=== PATIENT | male | born 1940 | race Caucasian/White ===

== ENCOUNTER 2018-01-16 07:24 | Day surgery (SDC) | payer OTHER, MEDICARE ==
[2018-01-15 15:40] LABS: Absolute Lymphocytes (CBC) 1.5 K/uL (0.7-4.9); Absolute Monocytes 0.6 K/uL (0.1-1.3); Absolute Neutrophil 3.5 K/uL (1.8-8.0); Basophils % 1.3 % (0-1.3); Eosinophils % 3.8 % (0-4.4); Hematocrit 40.2 % (39.6-49.0); Lymphocytes % 25.1 % (15.3-44.8); MCH 33.7 pg (27.0-35.0); MCV 95.2 fL (80-100); MPV 7.9 fL (7.6-11.3); Monocytes % 9.9 % (3.3-12.3); RBC Red Blood Cell Count 4.23 M/uL (4.33-5.43)
[2018-01-15 16:01] LABS: Potassium 4.1 mmol/L (3.5-5.1)
[2018-01-16] MEDS ORDERED: Ringers Lactate 1,000 ML IV ONE (08:42)
[2018-01-16] MEDS ORDERED: CEFAZOLIN/SWI 1gm 1 GM/10 ML SYR ONE (08:42)
[2018-01-16] MEDS ORDERED: PROPOFOL 200 MG/20 ML VIAL IV ONE ×2 (09:08→09:23)
[2018-01-16] MEDS ORDERED: LIDOCAINE 2% MPF 5 ML VIAL ONE (09:09)
--- NOTE | 2018-01-16 10:16 | P.BOP ---
Preoperative diagnosis: tender scalp mass Postoperative diagnosis: same Primary procedure: Excisioanal biopsy of tender scalp mass 2x2cm Estimated blood loss: <10cc Specimen: mass Findings: mass Anesthesia: General Complications: None Transferred to: Recovery Room Condition: Good
[2018-01-16] MEDS ORDERED: CODEINE 30MG/APAP 300MG TAB ONE (10:44)
--- NOTE | 2018-01-16 21:21 | DS ---
Date of Discharge: 01/16/2018 Diagnosis: Tender scalp mass. Procedure: Excisional biopsy of tender scalp mass, 2 x 2 cm. Disposition: Home. Activity: As tolerated. No heavy lifting. Followup: Follow up in my office in 1 week. Call for an appointment at [phone]. Keep area dry for 48 hours, then may shower. ACE Voice ID: [id number] Report ID: [id number]
--- NOTE | 2018-01-16 22:00 | OP ---
Date of Procedure: 01/16/2018 Surgeon: Garcia Jones MD Preoperative Diagnosis: Tender scalp mass. Postoperative Diagnosis: Tender scalp mass. Procedure: Excisional biopsy of tender enlarging scalp mass, 2 x 2 cm. Anesthesia: General plus local. Indications: This is a case of a 78-year-old patient who comes to us with a mass in the scalp, incre asing pain and discomfort, changing in color. The benefits, alternatives, and risks of excision were fully explained to the patient, which included, but are not limited to infection, bleeding, damage t o adjacent structures, anesthesia complications, recurrence, [place], and even . He also understands this may not relieve any symptoms. He may need more than one surgical intervention. The [facility] was marked by me and the patient in the holding room. Description Of Procedure: The patient was brought to the operating room and placed in the supine pos ition. Anesthesia was achieved without complication. Scalp area was prepped and draped in sterile f ashion. Local anesthetic was applied followed by sharp incision of the skin in a wedge fashion. Inc ision was carried down to the scalp, full thickness, all the way down to the bone, although does not involve the bone. The mass was excised. The area was irrigated. Hemostasis was obtained, and then this was closed with 2-0 nylon interrupted multiple times until closed. The patient tolerated the procedure well. No bleeding. The patient was sent to recovery in stable condition. LALITA/MARIA DEL CARMEN Voice ID: [id number] Report ID: [id number]
== END 2018-01-16 11:39 | disposition home or self-care (01) ==
LOC: OR 07:24
PROVIDERS: ATTEND Surgery
PROC: 0JB00ZZ Excision of Scalp Subcutaneous Tissue and Fascia, Open Approach (ICD-10-PCS; principal; 2018-01-16 08:45)
DX: L72.11 Pilar cyst (principal); I10 Essential (primary) hypertension; G47.30 Sleep apnea, unspecified; Z80.3 Family history of malignant neoplasm of breast; Z80.1 Family history of malignant neoplasm of trachea, bronchus and lung
CPT/HCPCS: 11422; 36415; 80048; 85025; 88304; J0690; J2704 ×2; 88305

== ENCOUNTER 2018-06-16 19:25 | Emergency (ER) | payer OTHER, MEDICARE ==
[2018-06-16] MEDS ORDERED: HYDROCODONE/APAP 7.5/325 MG TAB ONE (20:15)
[2018-06-16] MEDS ORDERED: IBUPROFEN 400 MG TAB ONE (20:15)
[2018-06-16] MEDS ORDERED: BUPIVACAINE 0.5% PF 10 ML VIAL ONE (20:16)
[2018-06-16] MEDS ORDERED: LIDOCAINE 1% MPF 5 ML VIAL ONE (20:16)
[2018-06-16] MEDS ORDERED: TETANUS & DIPHTHERIA TOX,ADULT 0.5 ML VIAL ONE (20:18)
--- NOTE | 2018-06-16 21:17 | RAD REPORT ---
EXAM DESCRIPTION: RAD - Hand Left 3 View - 06/16/2018 8:40 pm CLINICAL HISTORY: Trip and fall, hand pain, laceration COMPARISON: None. FINDINGS: No fracture, dislocation or periosteal reaction noted. IP joint degenerative changes are p resent most notable at the third PIP joint. No foreign body confirmed. A few film artifacts are prese nt. IMPRESSION: No fracture or acute bone finding. No foreign body seen.
--- NOTE | 2018-06-16 22:26 | EDPHYS ---
Physician Documentation [facility] Name: Jonathan Arreguin Age: 78 yrs Sex: Male : 1940 Arrival Date: 06/16/2018 Time: 19:27 Bed 30 Private MD: Omid Arreguin E ED Physician Zain Alfaro HPI: 06/16 20:05 This 78 yrs old Male presents to ER via Ambulatory with complaints of cp Laceration To Hand. 20:05 The patient or guardian reports injury, a laceration, irregular, pain. The complaints cp affect the sutton side left fifth metacarpal head. Context: resulted from fall while walking. Onset: The symptoms/episode began/occurred just prior to arrival. Associated signs and symptoms: Pertinent negatives: cyanosis distally, decreased sensation distally. Historical: - Allergies: 19:50 No Known Allergies; lp1 - Immunization history:: Adult Immunizations up to date, Last tetanus immunization: unknown. - Social history:: Smoking status: Patient/guardian denies using tobacco. - Ebola Screening: : No symptoms or risks identified at this time. ROS: 20:10 Constitutional: Negative for body aches, chills, fever, poor PO intake. cp 20:10 Eyes: Negative for injury, pain, redness, and discharge. cp 20:10 ENT: Negative for ear pain, sore throat, difficulty swallowing, difficulty handling cp secretions. 20:10 Cardiovascular: Negative for chest pain. 20:10 Respiratory: Negative for cough. 20:10 Abdomen/GI: Negative for abdominal pain. 20:10 Skin: Positive for laceration(s), of the left hand. 20:10 Neuro: Negative for dizziness, loss of consciousness, numbness, weakness. 20:10 All other systems are negative. Exam: 20:30 Constitutional: The patient appears in no acute distress, alert, awake, well developed, cp well nourished. 20:30 Head/Face: Normocephalic, atraumatic. cp 20:30 Eyes: Periorbital structures: appear normal, Conjunctiva: normal, Lids and lashes: appear normal, bilaterally. 20:30 ENT: External ear(s): are unremarkable, Nose: is normal, Mouth: is normal. 20:30 Chest/axilla: Inspection: normal. 20:30 Cardiovascular: Rate: normal. 20:30 Respiratory: the patient does not display signs of respiratory distress, Respirations: normal. 20:30 Musculoskeletal/extremity: ROM: full active range of motion, in the left fifth finger, Perfusion: the extremity is normally perfused throughout, Sensation intact. Tendon exam: specific tendon testing normal through active and passive range of motion 20:30 Skin: injury, laceration(s), the wound is approximately 5 cm(s), of the sutton side head of fifth metacarpal, that can be described as irregular, with moderate bleeding. Vital Signs: 19:50 BP 151 / 68; Pulse 62; Resp 18; Temp 99(TE); Pulse Ox 97% on R/A; Weight 104.33 kg; lp1 Height 6 ft. 0 in. (182.88 cm); Pain 10/10; 22:41 BP 138 / 71 RA Supine; Pulse 66; Resp 16 S; Pulse Ox 98% on R/A; rv 19:50 Body Mass Index 31.19 (104.33 kg, 182.88 cm) lp1 Laceration: 22:21 Wound Repair of 5cm ( 2.0in ) subcutaneous laceration to sutton side head of fifth cp metacarpal. Irregularly shaped.. Distal neuro/vascular/tendon intact. Anesthesia: Wound infiltrated with 5 mls of Lido/Marcaine. Wound prep: Moderate cleansing by me, Wound irrigation by me. Skin closed with 11 4-0 Prolene using simple sutures and sterile technique. Dressed with Bacitracin, 4x4's, volar splint. Patient tolerated well. MDM: 19:49 Patient medically screened. cp 22:24 Data reviewed: vital signs, nurses notes, radiologic studies, plain films. Test cp interpretation: by ED physician or midlevel provider: plain radiologic studies. Counseling: I had a detailed discussion with the patient and/or guardian regarding: the historical points, exam findings, and any diagnostic results supporting the discharge/admit diagnosis, radiology results, to return to the emergency department if symptoms worsen or persist or if there are any questions or concerns that arise at home. Response to treatment: the patient's symptoms have markedly improved after treatment, and as a result, I will discharge patient. 06/16 19:59 Order name: XRAY Hand LEFT 3 View; Complete Time: 21:21 cp 06/16 20:46 Order name: Wound Care: please clean and irrigate wound; Complete Time: 20:50 cp 06/16 22:10 Order name: Wound dressing; Complete Time: 22:32 cp 06/16 22:10 Order name: Splint - Volar Wrist Splint: left; Complete Time: 22:32 cp Administered Medications: 20:10 Drug: Hydrocodone-Acetaminophen (7.5 mg-325 mg) 1 tabs Route: PO; rv 22:39 Follow up: Response: Pain is decreased rv 20:10 Drug: Ibuprofen 800 mg Route: PO; rv 22:39 Follow up: Response: Pain is decreased rv 22:15 Drug: Tetanus-Diphtheria Toxoid Adult 0.5 ml {Qm Consultant: [employer]. Exp: rv 04/18/2020. Lot #: [id number]. } Route: IM; Site: right deltoid; 22:39 Follow up: Response: No adverse reaction rv 22:30 Drug: KeFLEX 500 mg Route: PO; rv 22:39 Follow up: Response: Medication administered at discharge. rv Disposition: 06/17 01:40 Co-signature as Attending Physician, Zain Alfaro MD. rn Disposition: 06/16/18 22:26 Discharged to Home. Impression: Laceration without foreign body of left hand. - Condition is Stable. - Discharge Instructions: Laceration Care, Adult. - Prescriptions for Keflex 500 mg Oral Capsule - take 1 capsule by ORAL route every 8 hours for 10 days; 30 capsule. Tramadol 50 mg Oral Tablet - take 1 tablet by ORAL route every 8 hours as needed; 12 tablet. - Medication Reconciliation Form, Thank You Letter, Antibiotic Education, Prescription Opioid Use form. - Follow up: Private Physician; When: 10 - 14 days; Reason: Staple/Suture removal. - Problem is new. - Symptoms have improved. Signatures: Dispatcher [employer] EDMS Zain Alfaro MD MD rn Pena, Laura, RN RN lp1 Jose Desai PA PA cp Vicente, Ronaldo, RN RN rv Corrections: (The following items were deleted from the chart) 06/16 22:41 22:26 06/16/2018 22:26 Discharged to Home. Impression: Laceration without foreign body rv of left hand. Condition is Stable. Forms are Medication Reconciliation Form, Thank You Letter, Antibiotic Education, Prescription Opioid Use. Follow up: Private Physician; When: 10 - 14 days; Reason: Staple/Suture removal. Problem is new. Symptoms have improved. cp
--- NOTE | 2018-06-16 22:26 | ER ---
Nurse's Notes [facility] Name: Jonathan Arreguin Age: 78 yrs Sex: Male : 1940 Arrival Date: 06/16/2018 Time: 19:27 Bed 30 Private MD: Omid Arreguin E Diagnosis: Laceration without foreign body of left hand Presentation: 06/16 19:49 Presenting complaint: Patient states: "I tripped and fell on some gravel"; Laceration lp1 to palm of left hand; Denies any other injuries. Transition of care: patient was not received from another setting of care. Onset of symptoms was June 16, 2018. Risk Assessment: Do you want to hurt yourself or someone else? Patient reports no desire to harm self or others. Initial Sepsis Screen: Does the patient meet any 2 criteria? No. Patient's initial sepsis screen is negative. Does the patient have a suspected source of infection? No. Patient's initial sepsis screen is negative. Care prior to arrival: None. 19:49 Method Of Arrival: Ambulatory lp1 19:49 Acuity: DECLAN 4 lp1 Historical: - Allergies: 19:50 No Known Allergies; lp1 - Immunization history:: Adult Immunizations up to date, Last tetanus immunization: unknown. - Social history:: Smoking status: Patient/guardian denies using tobacco. - Ebola Screening: : No symptoms or risks identified at this time. Screenin:50 Abuse screen: Denies threats or abuse. Denies injuries from another. Nutritional lp1 screening: No deficits noted. Tuberculosis screening: No symptoms or risk factors identified. 20:30 Fall Risk Fall in past 12 months (25 points). Secondary diagnosis (15 points) impaired rv mobility, No IV (0 pts). Ambulatory Aid- None/Bed Rest/Nurse Assist (0 pts). Gait- Normal/Bed Rest/Wheelchair (0 pts) Mental Status- Oriented to own ability (0 pts). Total Ashby Fall Scale indicates No Risk (0-24 pts). Assessment: 20:28 General: Appears in no apparent distress. comfortable, Behavior is calm, cooperative. rv Pain: Complains of pain in left hand. Neuro: Level of Consciousness is awake, alert, obeys commands, Oriented to person, place, time, situation. Cardiovascular: Capillary refill < 3 seconds. Respiratory: Airway is patent. GI: No signs and/or symptoms were reported involving the gastrointestinal system. : No signs and/or symptoms were reported regarding the genitourinary system. EENT: No signs and/or symptoms were reported regarding the EENT system. Derm: Wound noted inner aspect of left palm Wound is laceration. Musculoskeletal: Swelling present in inner aspect of left palm. Injury Description: Laceration sustained to inner aspect of left palm is contaminated, 0.5 to 2.5 cm long, not bleeding, was sustained 30-60 minutes ago. a small amount of bleeding noted at this time. Vital Signs: 19:50 BP 151 / 68; Pulse 62; Resp 18; Temp 99(TE); Pulse Ox 97% on R/A; Weight 104.33 kg; lp1 Height 6 ft. 0 in. (182.88 cm); Pain 10/10; 22:41 BP 138 / 71 RA Supine; Pulse 66; Resp 16 S; Pulse Ox 98% on R/A; rv 19:50 Body Mass Index 31.19 (104.33 kg, 182.88 cm) lp1 ED Course: 19:27 Patient arrived in ED. do 19:27 Omid Arreguin MD is Private Physician. do 19:49 Jose Desai [facility]. cp 19:49 Zain Alfaro MD is Attending Physician. cp 19:49 Triage completed. lp1 19:50 Arm band placed on right wrist. lp1 19:50 Patient has correct armband on for positive identification. lp1 19:59 Sesar Llamas, LUAN is Primary Nurse. rv 20:28 XRAY Hand LEFT 3 View Sent. rv 20:30 Wound care: to laceration located on inner aspect of left palm was cleaned with rv Hibiclens, irrigated with normal saline, dressed with 4X4s, Patient tolerated well. 20:40 XRAY Hand LEFT 3 View In Process Unspecified. EDMS 22:40 Assist provider with laceration repair on inner aspect of left palm that was 2.5 cm. or rv less using sutures. Set up tray. Performed by Jose HOLLAND Dressed with 4X4s, Patient tolerated well. Patient did not have IV access during this emergency room visit. Administered Medications: 20:10 Drug: Hydrocodone-Acetaminophen (7.5 mg-325 mg) 1 tabs Route: PO; rv 22:39 Follow up: Response: Pain is decreased rv 20:10 Drug: Ibuprofen 800 mg Route: PO; rv 22:39 Follow up: Response: Pain is decreased rv 22:15 Drug: Tetanus-Diphtheria Toxoid Adult 0.5 ml {Vp Marketing: [employer]. Exp: rv 04/18/2020. Lot #: [id number]. } Route: IM; Site: right deltoid; 22:39 Follow up: Response: No adverse reaction rv 22:30 Drug: KeFLEX 500 mg Route: PO; rv 22:39 Follow up: Response: Medication administered at discharge. rv Outcome: 22:26 Discharge ordered by MD. cp 22:40 Discharged to home ambulatory. rv 22:40 Condition: good 22:40 Discharge instructions given to patient, Instructed on discharge instructions, follow up and referral plans. medication usage, wound care, Demonstrated understanding of instructions, follow-up care, medications, wound care, Prescriptions given X 2. 22:41 Patient left the ED. rv Signatures: Dispatcher [employer] EDMS Ada Patel RN RN lp1 Jose Desai PA PA cp Ogletree, Danielle do Vicente, Ronaldo RN RN rv
[2018-06-16] MEDS ORDERED: CEPHALEXIN 250 MG CAP ONE (22:46)
== END 2018-06-16 22:41 | disposition home or self-care (01) ==
LOC: ER 19:25
PROC: 0JQK0ZZ Repair Left Hand Subcutaneous Tissue and Fascia, Open Approach (ICD-10-PCS; principal; 2018-06-16)
DX: S61.012A Laceration without foreign body of left thumb without damage to nail, initial encounter (principal); W19.XXXA Unspecified fall, initial encounter; Y93.01 Activity, walking, marching and hiking; Y92.9 Unspecified place or not applicable; Z23 Encounter for immunization
CPT/HCPCS: 90714; 99284

== ENCOUNTER 2018-10-08 13:11 | Emergency (ER) | payer OTHER, MEDICARE ==
[2018-10-08] MEDS ORDERED: CYCLOBENZAPRINE 10 MG TAB ONE ×2 (15:02→15:03)
[2018-10-08] MEDS ORDERED: KETOROLAC 30 MG/ML INJ ONE ×2 (15:02→15:04)
[2018-10-08] MEDS ORDERED: METHYLPREDNISOLONE 125 MG INJ ONE ×2 (15:02→15:03)
[2018-10-08] MEDS ORDERED: HYDROCODONE/APAP 7.5/325 MG TAB ONE ×2 (15:03→15:04)
--- NOTE | 2018-10-08 15:32 | RAD REPORT ---
EXAM DESCRIPTION: RAD - Chest Single View - 10/08/2018 3:16 pm CLINICAL HISTORY: Back pain, chest pain COMPARISON: December 2017 TECHNIQUE: AP portable chest image was obtained 1514 hour . FINDINGS: Lung volumes are low. This accentuates the baseline interstitial pattern. Early interstiti al edema and infiltrate can be masked. Heart size and mediastinum are accentuated by the exam limitat ions. Trachea is midline. Mild vascular engorgement is seen. No measurable pleural effusion and no pn eumothorax. No acute bony abnormality seen. No acute aortic findings suspected. IMPRESSION: Limited portable imaging without peripheral mass or consolidation. Heart, vasculature and lung markings are all accentuated by shallow inspiration. This potentially mas ks early failure, volume overload or interstitial infiltrate.
--- NOTE | 2018-10-08 15:43 | ER ---
Nurse's Notes [facility] Name: Jonathan Arreguin Age: 78 yrs Sex: Male : 1940 Arrival Date: 10/08/2018 Time: 13:14 Bed 26 Private MD: Omid Arreguin E Diagnosis: Chest pain on breathing Presentation: 10/08 13:20 Presenting complaint: Patient states: yesterday evening i started having R upper back hj pain, reports sharp pain and SOB; denies chest pain; denies trauma to the area; denies cough; denies fever and chills;. Transition of care: patient was not received from another setting of care. Onset of symptoms was October 08, 2018. Risk Assessment: Do you want to hurt yourself or someone else? Patient reports no desire to harm self or others. Initial Sepsis Screen: Does the patient meet any 2 criteria? No. Patient's initial sepsis screen is negative. Does the patient have a suspected source of infection? No. Patient's initial sepsis screen is negative. Care prior to arrival: None. 13:20 Method Of Arrival: Ambulatory 13:20 Acuity: DECLAN 3 hj Historical: - Allergies: 13:22 No Known Allergies; hj - PMHx: 13:22 Hypertension; Hyperlipidemia; hj - PSHx: 13:22 hand; hj - Immunization history:: Adult Immunizations up to date. - Social history:: Smoking status: unknown. - Ebola Screening: : No symptoms or risks identified at this time. Screenin:52 Abuse screen: Denies threats or abuse. Denies injuries from another. Nutritional aj1 screening: No deficits noted. Tuberculosis screening: No symptoms or risk factors identified. 16:00 Fall Risk mg2 Assessment: 13:52 General: Appears in no apparent distress. uncomfortable, Behavior is calm, cooperative, aj1 appropriate for age. Pain: Complains of pain in right scapular area Pain currently is 8 out of 10 on a pain scale. Neuro: Level of Consciousness is awake, alert, obeys commands, Oriented to person, place, time, situation, Gait is steady. Cardiovascular: Patient's skin is warm and dry. Respiratory: Airway is patent Respiratory effort is even, unlabored, Respiratory pattern is regular, symmetrical. GI: No signs and/or symptoms were reported involving the gastrointestinal system. : No signs and/or symptoms were reported regarding the genitourinary system. EENT: No signs and/or symptoms were reported regarding the EENT system. Derm: No signs and/or symptoms reported regarding the dermatologic system. Skin is pink, warm \T\ dry. normal. Musculoskeletal: Range of motion: intact in all extremities. 14:20 Reassessment: Dr. Ramos at bedside. aj1 Vital Signs: 13:22 BP 135 / 62; Pulse 64; Resp 18; Temp 99.8(TE); Pulse Ox 95% on R/A; Weight 106.59 kg; hj Height 6 ft. 0 in. (182.88 cm); Pain 8/10; 16:16 BP 125 / 75; Pulse 70; Resp 18; Temp 98; Pulse Ox 100% on R/A; Pain 0/10; mg2 13:22 Body Mass Index 31.87 (106.59 kg, 182.88 cm) hj ED Course: 13:14 Patient arrived in ED. rg4 13:14 Omid Arreguin MD is Private Physician. rg4 13:21 Triage completed. hj 13:22 Arm band placed on right wrist. hj 13:28 Charles Ramos MD is Attending Physician. kdr 13:51 Estela Puckett RN is Primary Nurse. aj1 13:52 Patient has correct armband on for positive identification. Bed in low position. Call aj1 light in reach. Side rails up X 1. 13:52 No provider procedures requiring assistance completed. aj1 15:14 Inserted saline lock: 20 gauge in right antecubital area, using aseptic technique. mg2 15:17 CXR XRAY In Process Unspecified. EDMS 15:40 Omid Arreguin MD is Referral Physician. kdr 16:16 IV discontinued, intact, bleeding controlled, No redness/swelling at site. Pressure mg2 dressing applied. Administered Medications: 15:13 Drug: SOLU-Medrol 125 mg Route: IVP; Site: right antecubital; mg2 16:15 Follow up: Response: No adverse reaction; Marked relief of symptoms mg2 15:14 Drug: TORadol - Ketorolac 15 mg Route: IVP; Site: right antecubital; mg2 16:16 Follow up: Response: No adverse reaction; Marked relief of symptoms mg2 15:14 Drug: Flexeril 10 mg Route: PO; mg2 16:15 Follow up: Response: No adverse reaction; Marked relief of symptoms mg2 15:14 Drug: [place] (7.5 mg-325 mg) 1 tabs Route: PO; mg2 16:15 Follow up: Response: No adverse reaction; Marked relief of symptoms mg2 Outcome: 15:42 Discharge ordered by . kdr 16:17 Discharged to home ambulatory, with family. mg2 16:17 Condition: stable 16:17 Discharge instructions given to patient, family, Instructed on discharge instructions, follow up and referral plans. medication usage, Demonstrated understanding of instructions, follow-up care, medications, Prescriptions given X 3. 16:17 Patient left the ED. mg2 Signatures: Dispatcher [employer] EDMS Estela Puckett RN RN aj1 Charles Ramos MD MD [facility] Garcia Correia RN RN Farzaneh Lora rg4 Mickey Goldsmith RN RN mg2 Corrections: (The following items were deleted from the chart) 13:24 13:22 Pulse 64bpm; Resp 18bpm; Pulse Ox 95% RA; Temp 99.8F Temporal; 106.59 kg; Height hj 6 ft. 0 in.; BMI: 31.8; Pain 8/10; hj
--- NOTE | 2018-10-08 15:43 | EDPHYS ---
Physician Documentation [facility] Name: Jonathan Arreguin Age: 78 yrs Sex: Male : 1940 Arrival Date: 10/08/2018 Time: 13:14 Bed 26 Private MD: Omid Arreguin E ED Physician Charles Ramos HPI: 10/08 18:05 This 78 yrs old Male presents to ER via Ambulatory with complaints of Back kdr Pain. 18:05 The patient presents with pain that is acute, with no known mechanism of injury. The kdr symptoms are located in the right thorax and infra/lower scapula. Onset: The symptoms/episode began/occurred gradually, 3 day(s) ago. The pain does not radiate. Associated signs and symptoms: Pertinent positives: chest pain. The problem was sustained from unknown cause. Modifying factors: The patient symptoms are alleviated by remaining still, the patient symptoms are aggravated by bending, coughing, coughing/breathing. Severity of symptoms: At their worst the symptoms were mild, moderate, just prior to arrival, in the emergency department the symptoms are unchanged. The patient has not experienced similar symptoms in the past. The patient has not recently seen a physician. Historical: - Allergies: 13:22 No Known Allergies; hj - PMHx: 13:22 Hypertension; Hyperlipidemia; hj - PSHx: 13:22 hand; hj - Immunization history:: Adult Immunizations up to date. - Social history:: Smoking status: unknown. - Ebola Screening: : No symptoms or risks identified at this time. Vital Signs: 13:22 BP 135 / 62; Pulse 64; Resp 18; Temp 99.8(TE); Pulse Ox 95% on R/A; Weight 106.59 kg; hj Height 6 ft. 0 in. (182.88 cm); Pain 8/10; 16:16 BP 125 / 75; Pulse 70; Resp 18; Temp 98; Pulse Ox 100% on R/A; Pain 0/10; mg2 13:22 Body Mass Index 31.87 (106.59 kg, 182.88 cm) hj MDM: 15:42 Patient medically screened. kdr 10/08 14:55 Order name: CXR XRAY; Complete Time: 15:40 kdr 10/08 14:57 Order name: IV Saline Lock; Complete Time: 15:06 ca1 Administered Medications: 15:13 Drug: SOLU-Medrol 125 mg Route: IVP; Site: right antecubital; mg2 16:15 Follow up: Response: No adverse reaction; Marked relief of symptoms mg2 15:14 Drug: TORadol - Ketorolac 15 mg Route: IVP; Site: right antecubital; mg2 16:16 Follow up: Response: No adverse reaction; Marked relief of symptoms mg2 15:14 Drug: Flexeril 10 mg Route: PO; mg2 16:15 Follow up: Response: No adverse reaction; Marked relief of symptoms mg2 15:14 Drug: [place] (7.5 mg-325 mg) 1 tabs Route: PO; mg2 16:15 Follow up: Response: No adverse reaction; Marked relief of symptoms mg2 Disposition: 10/08/18 15:42 Discharged to Home. Impression: Chest pain on breathing. - Condition is Stable. - Discharge Instructions: Chest Wall Pain, Costochondritis, Nonspecific Chest Pain, [id number]. - Prescriptions for Ibuprofen 600 mg Oral Tablet - take 1 tablet by ORAL route every 6 hours As needed take with food; 30 tablet. Tramadol 50 mg Oral Tablet - take 1 tablet by ORAL route every 8 hours as needed; 15 tablet. Medrol (Oskar) 4 mg Oral Tablets, Dose Pack - take 1 tablet by ORAL route as directed - follow package instructions; 1 packet. - Medication Reconciliation Form, Thank You Letter, Prescription Opioid Use form. - Follow up: Omid Arreguin MD; When: 2 - 3 days; Reason: If symptoms return, Further diagnostic work-up, Recheck today's complaints, Continuance of care, Re-evaluation by your physician. - Problem is new. - Symptoms have improved. Signatures: Dispatcher [employer] EDEstela Avelar RN RN aj1 Charles Ramos MD MD kdr Joaquin, Henry, RN RN hj Mickey Goldsmith RN RN mg2 Carey Sosa RN RN ca1 Corrections: (The following items were deleted from the chart) 16:17 15:42 10/08/2018 15:42 Discharged to Home. Impression: Chest pain on breathing. mg2 Condition is Stable. Forms are Medication Reconciliation Form, Thank You Letter, Antibiotic Education, Prescription Opioid Use. Follow up: Omid Arreguin; When: 2 - 3 days; Reason: If symptoms return, Further diagnostic work-up, Recheck today's complaints, Continuance of care, Re-evaluation by your physician. Problem is new. Symptoms have improved. kdr
== END 2018-10-08 16:17 | disposition home or self-care (01) ==
LOC: ER 13:11
DX: R07.1 Chest pain on breathing (principal); I10 Essential (primary) hypertension; E78.5 Hyperlipidemia, unspecified
CPT/HCPCS: 71045; 96375; 96374; 99284; J2930 ×2

== ENCOUNTER 2020-07-04 15:49 | Emergency (ER) | payer OTHER, MEDICARE ==
--- OUTSIDE RECORDS SUMMARY | 2020-07-04 15:52 | XMS REPORT | Continuity of Care Document ---
:1940 Author Organization Formerly [facility] t Address [address] [place] [address] [address] [place] [address] Care Team Providers Name Role Phone Jhonatan Bailey MD Attending Clinician Problems This patient has no known problems. Allergies, Adverse Reactions, Alerts This patient has no known allergies or adverse reactions. Medications This patient has no known medications. Procedures This patient has no known procedures. Encounters Start End Encounter Admission Attending Care Care Encounter Source Date/Time Date/Time Type Type Clinicians Facility Department ID 2020-02-12 2020-02-12 Office SAIDA Bailey [id number] 14:05:22 15:04:06 Visit [facility] [id number] Surgical [id number] Formerly [facility] [id number] [address] Results This patient has no known results.
[2020-07-04 19:37] LABS: Absolute Lymphocytes (CBC) 0.8 K/uL (0.7-4.9); Basophils % 1.3 % (0-1.3); Hematocrit 40.6 % (39.6-49.0); Lymphocytes % 15.7 % (15.3-44.8); MPV 8.3 fL (7.6-11.3); RBC Red Blood Cell Count 4.33 M/uL (4.33-5.43)
[2020-07-04 19:38] LABS: Protime INR 0.99
[2020-07-04] MEDS ORDERED: MORPHINE 4 MG/ML SYR ONE (19:42)
[2020-07-04] MEDS ORDERED: ONDANSETRON 4 MG/2 ML VIAL ONE (19:43)
[2020-07-04 19:50] LABS: Magnesium 2.4 mg/dL (1.8-2.4); NT PRO-BNP 364 pg/mL (<450); Troponin (Emerg Dept Use Only) < 0.02 ng/mL (0.0-0.045)
[2020-07-04 19:51] LABS: Albumin 3.9 g/dL (3.4-5.0); Bilirubin Direct 0.2 mg/dL (0-0.2); Bilirubin Total 0.6 mg/dL (0.2-1.0); Potassium 4.2 mmol/L (3.5-5.1); Protein, Total 7.1 g/dL (6.4-8.2)
--- NOTE | 2020-07-04 20:22 | RAD REPORT ---
EXAM DESCRIPTION: CT - Chest Abdomen Pelvis W Cont - 07/04/2020 8:11 pm CLINICAL HISTORY: Chest and abdomen pain. PAIN COMPARISON: No comparisons TECHNIQUE: Approximately 100 mL nonionic IV contrast was administered to the patient. All CT scans are performed using dose optimization technique as appropriate and may include automated exposure control or mA/KV adjustment according to patient size. FINDINGS: Emphysematous changes are present throughout the lungs.Trace pleural fluid is present bila terally. Mild to moderate pericardial effusion.No intrathoracic adenopathy. Mild diffuse fatty liver. The spleen, pancreas, adrenal glands and kidneys are within normal limits. Aortoiliac iliac atherosclerosis. No bowel obstruction, free air, free fluid or abscess. Normal appendix. Scattered colonic diverticulo sis without diverticulitis. No pathologic lymphadenopathy in the abdomen or pelvis. Moderate lumbosacral degenerative changes. Nondisplaced fracture left lateral seventh and eighth ribs . IMPRESSION: Nondisplaced fracture left lateral seventh and eighth ribs. No pneumothorax. COPD is present. Small to moderate pericardial effusion. Colonic diverticulosis is seen without diverticulitis. Moderate stool is retained in the colon.
--- NOTE | 2020-07-04 20:39 | ER ---
Nurse's Notes [facility] Name: Jonathan Arreguin Age: 80 yrs Sex: Male : 1940 Arrival Date: 07/04/2020 Time: 15:[address] Private MD: Omid Arreguin E Diagnosis: Multiple fractures of ribs, left side-nondisplaced, seventh and eighth rib Presentation: 07/04 16:38 Chief complaint: Patient states: L side pain, radiates to the LUQ then LLQ and also ca1 goes to the back. Started afternoon, 4 days ago, and has gotten progressively worse. It hurts to breathe now, and hurts more with movement. Denies N/V/D at this time. Had nausea 2 - 3 days [employer]EL[employer]. Coronavirus screen: Client denies travel out of the [place] in the last 14 days. At this time, the client does not indicate any symptoms associated with coronavirus-19. Ebola Screen: Patient negative for fever greater than or equal to 101.5 degrees Fahrenheit, and additional compatible Ebola Virus Disease symptoms Patient denies exposure to infectious person. Patient denies travel to an Ebola-affected area in the 21 days before illness onset. No symptoms or risks identified at this time. Initial Sepsis Screen: Does the patient meet any 2 criteria? No. Patient's initial sepsis screen is negative. Does the patient have a suspected source of infection? No. Patient's initial sepsis screen is negative. Risk Assessment: Do you want to hurt yourself or someone else? Patient reports no desire to harm self or others. Onset of symptoms was July 04, 2020. 16:38 Method Of Arrival: Ambulatory ca1 16:38 Acuity: DECLAN 3 ca1 Historical: - Allergies: 16:43 No Known Allergies; ca1 - PMHx: 16:43 Hyperlipidemia; Hypertension; Gout; Depression; ca1 - PSHx: 16:43 hand; Hernia repair; ca1 - Immunization history:: Client reports receiving the 2nd dose of the Covid vaccine, Client reports receiving the 1st dose of the Covid vaccine, Pneumococcal vaccine is up to date, Flu vaccine is up to date. - Social history:: Smoking status: Patient denies any tobacco usage or history of. Screenin:51 Abuse screen: Denies threats or abuse. Denies injuries from another. Nutritional zb screening: No deficits noted. Tuberculosis screening: No symptoms or risk factors identified. Fall Risk None identified. Assessment: 18:45 General: Appears in no apparent distress. uncomfortable, Behavior is calm, cooperative, zb appropriate for age. Pain: Complains of pain in anterior aspect of left lateral abdomen, posterior aspect of left lateral abdomen and left upper quadrant, left lower breast area Pain currently is 3 out of 10 on a pain scale. Neuro: Level of Consciousness is awake, alert, obeys commands, Oriented to person, place, time, situation. Cardiovascular: Capillary refill < 3 seconds Patient's skin is warm and dry. Respiratory: Airway is patent Respiratory effort is even, unlabored, Respiratory pattern is regular, symmetrical. GI: Abdomen is round obese. GI: Reports upper abdominal pain, nausea, Patient currently denies diarrhea, vomiting. Derm: Skin is intact, is healthy with good turgor, Skin is dry, Skin is normal, Skin temperature is warm. Derm: Reports change in color on his left thigh area. Musculoskeletal: Range of motion: intact in all extremities. 18:52 Reassessment: ECP at bedside. zb 20:00 Reassessment: Patient appears in no apparent distress at this time. Patient and/or lp1 family updated on plan of care and expected duration. Pain level reassessed. Patient is alert, oriented x 3, equal unlabored respirations, skin warm/dry/pink. family at bedside. 20:55 Reassessment: okay to d/c urine order. per ecp. lp1 20:59 Reassessment: Patient appears in no apparent distress at this time. Patient and/or lp1 family updated on plan of care and expected duration. Pain level reassessed. Patient is alert, oriented x 3, equal unlabored respirations, skin warm/dry/pink. D/c instructions given. IS provided and preformed. returned demonstration. 2000 x 4 family at bedside. Vital Signs: 16:38 BP 152 / 72; Pulse 52; Resp 18 S; Temp 97.4(TE); Pulse Ox 98% ; Weight 102.06 kg (R); ca1 Height 6 ft. 0 in. (182.88 cm) (R); Pain 2/10; 19:51 BP 165 / 65; Pulse 43; Resp 16; Pulse Ox 96% on R/A; zb 21:00 BP 164 / 58; Pulse 50; Resp 16; Pulse Ox 99% on R/A; lp1 16:38 Body Mass Index 30.52 (102.06 kg, 182.88 cm) ca1 ED Course: 15:51 Patient arrived in ED. am2 15:51 Omid Arreguin MD is Private Physician. am2 16:42 Triage completed. ca1 16:43 Arm band placed on right wrist. ca1 18:42 Shannon Puckett FNP-C [facility]. kb 18:42 Sofía Wynne MD is Attending Physician. kb 18:48 Lady Chacko RN is Primary Nurse. zb 18:51 Patient has correct armband on for positive identification. Bed in low position. Call zb light in reach. Side rails up X 1. Placed in gown. Adult w/ patient. Pulse ox on. NIBP on. Door closed. Noise minimized. 20:11 CT Chest, Abdomen, Pelvis - W/Contrast In Process Unspecified. EDMS 20:58 INCENTIVE SPIROMETRY Sent. lp1 20:58 No provider procedures requiring assistance completed. IV discontinued, intact, lp1 bleeding controlled, No redness/swelling at site. Pressure dressing applied. Administered Medications: 19:53 Drug: morphine 4 mg {Note: RASS 0.} Route: IVP; Site: right antecubital; zb 20:57 Follow up: Response: No adverse reaction; Pain is unchanged, physician notified lp1 19:53 Drug: Zofran (Ondansetron) 4 mg Route: IVP; Site: right antecubital; zb 20:58 Follow up: Response: No adverse reaction lp1 20:57 Drug: Adams (HYDROcodone-acetaminophen) (7.5 mg-325 mg) 1 tabs Route: PO; lp1 20:58 Follow up: Response: Medication administered at discharge. lp1 Outcome: 20:38 Discharge ordered by . kb 20:58 Discharged to home ambulatory, with family. lp1 20:58 Condition: stable 20:58 Discharge instructions given to patient, family, Instructed on discharge instructions, follow up and referral plans. IS Demonstrated understanding of instructions, follow-up care, IS Prescriptions given X 1. 21:04 Patient left the ED. lp1 Signatures: Dispatcher [employer] EDMS Shannon Puckett FNP-C FNP-Ckb Ada Patel RN RN lp1 Joceline Swenson am2 Carey Sosa RN RN ca1 Lady Chacko RN RN zb Corrections: (The following items were deleted from the chart) 19:52 18:45 Pain: Complains of pain in anterior aspect of left lateral abdomen, posterior zb aspect of left lateral abdomen and left upper quadrant Pain currently is 3 out of 10 on a pain scale. mashab
--- NOTE | 2020-07-04 20:39 | EDPHYS ---
Physician Documentation [facility] Name: Jonathan Arreguin Age: 80 yrs Sex: Male : 1940 Arrival Date: 07/04/2020 Time: 15:[address] Private MD: Omid Arreguin E ED Physician Sofía Wynne HPI: 07/04 20:48 This 80 yrs old Male presents to ER via Ambulatory with complaints of Flank kb Pain - left, Back Pain - left side. 20:49 The patient or guardian reports chest pain that is located primarily in the left kb lateral anterior chest and left lateral posterior chest. Onset: 4 day(s) ago. The pain does not radiate. Associated signs and symptoms: Pertinent positives: nausea. The chest pain is described as aching. Duration: The patient or guardian reports a single episode, that is still ongoing. Modifying factors: The symptoms are alleviated by remaining still, rest, the symptoms are aggravated by breathing, cough, deep breath, movement. Severity of pain: At its worst the pain was moderate in the emergency department the pain is unchanged. The patient has not experienced similar symptoms in the past. The patient has not recently seen a physician. Pt reports he got up from his chair on evening and started having left lateral chest/rib pain. States pain is worse with deep breaths, cough, movement. Denies fall or other trauma. Reports he had nausea on Sunday only. lower left lateral ribs are tender to palpation. No shortness of breath, palpitations. Daughter states pt's normal heart rate is in the 50s and he has a history of a first degree block. . Historical: - Allergies: 16:43 No Known Allergies; ca1 - PMHx: 16:43 Hyperlipidemia; Hypertension; Gout; Depression; ca1 - PSHx: 16:43 hand; Hernia repair; ca1 - Immunization history:: Client reports receiving the 2nd dose of the Covid vaccine, Client reports receiving the 1st dose of the Covid vaccine, Pneumococcal vaccine is up to date, Flu vaccine is up to date. - Social history:: Smoking status: Patient denies any tobacco usage or history of. ROS: 20:47 Constitutional: Negative for fever, chills, and weight loss, Back: Negative for injury kb and pain, MS/Extremity: Negative for injury and deformity, Skin: Negative for injury, rash, and discoloration, Neuro: Negative for headache, weakness, numbness, tingling, and seizure. 20:47 Cardiovascular: Positive for chest pain, with cough, with movement, of the left lateral anterior chest and left lateral posterior chest. 20:47 Respiratory: Positive for pleurisy, of the left lateral anterior chest. 20:47 Abdomen/GI: Positive for nausea, Negative for abdominal pain. Exam: 20:48 Constitutional: This is a well developed, well nourished patient who is awake, alert, kb and in no acute distress. Head/Face: Normocephalic, atraumatic. Cardiovascular: Regular rate and rhythm with a normal S1 and S2. No gallops, murmurs, or rubs. No pulse deficits. Respiratory: Respirations even and unlabored. No increased work of breathing, no retractions or nasal flaring. Abdomen/GI: Soft, non-tender. No distention Back: No spinal tenderness. No costovertebral tenderness. Full range of motion. Skin: Warm, dry with normal turgor. Normal color. MS/ Extremity: Pulses equal, no cyanosis. Neurovascular intact. Full, normal range of motion. Neuro: Awake and alert, GCS 15, oriented to person, place, time, and situation. Moves all extremities. Normal gait. 20:48 Chest/axilla: Inspection: normal, Palpation: tenderness, that is moderate, of the left lateral anterior chest and left lateral posterior chest, that totally reproduces the patient's complaints. Vital Signs: 16:38 BP 152 / 72; Pulse 52; Resp 18 S; Temp 97.4(TE); Pulse Ox 98% ; Weight 102.06 kg (R); ca1 Height 6 ft. 0 in. (182.88 cm) (R); Pain 2/10; 19:51 BP 165 / 65; Pulse 43; Resp 16; Pulse Ox 96% on R/A; zb 21:00 BP 164 / 58; Pulse 50; Resp 16; Pulse Ox 99% on R/A; lp1 16:38 Body Mass Index 30.52 (102.06 kg, 182.88 cm) ca1 MDM: 18:43 Patient medically screened. kb 20:36 Data reviewed: vital signs, nurses notes. Data interpreted: Pulse oximetry: on room air kb is 96 %. Interpretation: normal. Counseling: I had a detailed discussion with the patient and/or guardian regarding: the historical points, exam findings, and any diagnostic results supporting the discharge/admit diagnosis, lab results, radiology results, the need for outpatient follow up, a level vial sealer, a family practitioner, to return to the emergency department if symptoms worsen or persist or if there are any questions or concerns that arise at home. 07/04 18:43 Order name: Basic Metabolic Panel kb 07/04 18:43 Order name: CBC with Diff; Complete Time: 19:49 kb 07/04 18:43 Order name: Hepatic Function; Complete Time: 19:51 kb 07/04 18:43 Order name: Lipase; Complete Time: 19:51 kb 07/04 18:43 Order name: Basic Metabolic Panel; Complete Time: 19:51 EDMS 07/04 18:56 Order name: Magnesium kb 07/04 18:56 Order name: NT PRO-BNP kb 07/04 18:56 Order name: PT-INR; Complete Time: 19:49 kb 07/04 18:56 Order name: Troponin (emerg Dept Use Only); Complete Time: 19:51 kb 07/04 18:57 Order name: CT Chest, Abdomen, Pelvis - W/Contrast; Complete Time: 20:24 kb 07/04 18:57 Order name: Magnesium; Complete Time: 19:51 EDMS 07/04 18:57 Order name: NT PRO-BNP; Complete Time: 19:51 EDMS 07/04 20:37 Order name: INCENTIVE SPIROMETRY kb 07/04 18:43 Order name: IV Saline Lock; Complete Time: 01:01 kb 07/04 18:43 Order name: Labs collected and sent kb 07/04 18:56 Order name: EKG; Complete Time: 18:57 kb 07/04 18:56 Order name: Cardiac monitoring; Complete Time: 19:51 kb 07/04 18:56 Order name: EKG - Nurse/Tech; Complete Time: 19:51 kb 07/04 18:56 Order name: O2 Per Protocol; Complete Time: 19:07 kb 07/04 18:56 Order name: O2 Sat Monitoring; Complete Time: 19:07 kb Administered Medications: 19:53 Drug: morphine 4 mg {Note: RASS 0.} Route: IVP; Site: right antecubital; zb 20:57 Follow up: Response: No adverse reaction; Pain is unchanged, physician notified lp1 19:53 Drug: Zofran (Ondansetron) 4 mg Route: IVP; Site: right antecubital; zb 20:58 Follow up: Response: No adverse reaction lp1 20:57 Drug: Troy (HYDROcodone-acetaminophen) (7.5 mg-325 mg) 1 tabs Route: PO; lp1 20:58 Follow up: Response: Medication administered at discharge. lp1 Disposition: 07/04/20 20:38 Discharged to Home. Impression: Multiple fractures of ribs, left side - nondisplaced, seventh and eighth rib. - Condition is Stable. - Discharge Instructions: Rib Fracture, [id number]. - Prescriptions for Tylenol- Codeine #3 300-30 mg Oral Tablet - take 2 tablets by ORAL route every 6 hours As needed; 18 tablet. - Medication Reconciliation Form, Thank You Letter, Antibiotic Education, Prescription Opioid Use form. - Follow up: Emergency Department; When: As needed; Reason: Worsening of condition. Follow up: Private Physician; When: 2 - 3 days; Reason: Recheck today's complaints, Continuance of care, Re-evaluation by your physician. Addendum: 07/07/2020 20:23 Co-signature as Attending Physician, Sofía Wynne MD. m a2 Signatures: Dispatcher [employer] EDShannon Harmon, SHILO-C ANALYTICAL LABORATORY TECHNICIAN-CkAda Wood RN RN lp1 Sofía Wynne MD MD va2 Carey Sosa RN RN ca1 Brown, Zipporah, RN RN zb Corrections: (The following items were deleted from the chart) 07/04 20:52 20:49 Pt reports he got up from his chair on evening and started having left kb lateral chest/rib pain. States pain is worse with deep breaths, cough, movement. Denies fall or other trauma. Reports he had nausea on Sunday only. lower left lateral ribs are tender to palpation. No shortness of breath, palpitations. . kb 21:03 18:43 Urine Dipstick-Ancillary ordered. kb lp1 21:04 20:38 07/04/2020 20:38 Discharged to Home. Impression: Multiple fractures of ribs, left lp1 side - nondisplaced, seventh and eighth rib. Condition is Stable. Forms are Medication Reconciliation Form, Thank You Letter, Antibiotic Education, Prescription Opioid Use. Follow up: Emergency Department; When: As needed; Reason: Worsening of condition. Follow up: Private Physician; When: 2 - 3 days; Reason: Recheck today's complaints, Continuance of care, Re-evaluation by your physician. kb
[2020-07-04] MEDS ORDERED: HYDROCODONE/APAP 7.5/325 MG TAB ONE (21:07)
[2020-07-04 21:20] VITALS: TEMP 97.4
[2020-07-04 21:23] VITALS: BP 164/58; O2SAT 99
--- NOTE | 2020-07-05 09:19 | EKG ---
Test Date: 2020-07-04 Test Time: 19:39:04 Lift Supervisor: LAMONT MEASUREMENT RESULTS: Intervals: Rate: 46 RI: 278 QRSD: 102 QT: 504 QTc: 441 [place]: P: 37 RI: 278 QRS: 21 T: 42 INTERPRETIVE STATEMENTS: Marked sinus bradycardia with 1st degree AV block Abnormal ECG Compared to ECG 06/14/2015 15:35:54 Ventricular premature complex(es) no longer present Electronically Signed On 07-05-20 09:17:12 CDT by Kamari Mccarty
== END 2020-07-04 21:04 | disposition home or self-care (01) ==
LOC: ER 15:49
DX: S22.42XA Multiple fractures of ribs, left side, initial encounter for closed fracture (principal); X58.XXXA Exposure to other specified factors, initial encounter; E78.5 Hyperlipidemia, unspecified; I10 Essential (primary) hypertension; M10.9 Gout, unspecified; F32.9 Major depressive disorder, single episode, unspecified
CPT/HCPCS: 93005; 85025; 80048; 36415; 83735; 85610; 82565; 80076; 84484; 83690; 83880; 71260; 74177; Q9967; J2405; 96374; 96375; 99284

== ENCOUNTER 2022-05-25 11:06 | Emergency (ER) | payer OTHER, MEDICARE ==
--- OUTSIDE RECORDS SUMMARY | 2022-05-25 11:09 | XMS REPORT | Continuity of Care Document ---
:1940 Author Organization [facility] t Address [address] [place] [address] [address] [place] [address] Care Team Providers Name Role Phone LESLIE RG Primary Care Physician Unavailable Leo BATRES, Bc [place] Attending Clinician BC PATIÑO Attending Clinician Unavailable BC PATIÑO Admitting Clinician Unavailable Payers Payer Name Policy Type Policy Number Effective Date Expiration Date S rene MEDICARE PART A \T\ [id number] 2005 B 00:00:00 [facility] [id number] 2015 MEDICARE SUPPLEMENT 00:00:00 Problems This patient has no known problems. Allergies, Adverse Reactions, Alerts Allergy Allergy Status Severity Reaction(s) Onset Inactive Treating Comm ents Source Name Type Date Date Clinician NO KNOWN Drug [facility] Medications This patient has no known medications. Procedures This patient has no known procedures. Encounters Start End Encounter Admission Attending Care Care Encounter Source Date/Time Date/Time Type Type Clinicians Facility Department ID 2020-02-12 2020-02-12 [facility] [id number] 14:05:22 15:04:06 Visit Bc Israel [facility] [id number] Surgical [id number] Specialti [id number] [address] [place] 2020-02-12 2020-02-12 Outpatient R LEO [facility] [id number] Univers 14:15:00 14:15:00 BC kemp [facility] 2020-02-04 2020-02-04 Outpatient R LEO [facility] [id number] Univers 12:47:06 23:59:00 BC [facility] 2020-01-07 2020-01-07 [facility] [id number] Univers 13:45:00 13:45:00 BC kemp [facility] 2019-12-05 2019-12-05 Outpatient Dani [facility] [id number] Univers 11:00:00 11:00:00 BC raffi [facility] 2019-03-13 2019-03-13 [facility] [id number] Univers 08:21:54 23:59:00 [facility] Results This patient has no known results.
--- NOTE | 2022-05-25 11:59 | RAD REPORT ---
EXAM DESCRIPTION: CT - Thoracic Spine W/o Cont - 05/25/2022 11:36 am CLINICAL HISTORY: Fall in shower 1 week ago. Mid upper back pain COMPARISON: Chest radiographs 06/07/2021. TECHNIQUE: Thin axial CT cuts of the thoracic spine, performed without IV contrast. Multiplanar refo rmats were generated and reviewed. All CT scans are performed using dose optimization technique as appropriate and may include automated exposure control or mA/KV adjustment according to patient size. FINDINGS: Thoracic vertebral bodies demonstrate preserved height and alignment. Multilevel endplate degenerative changes with marginal osteophytosis and multilevel Schmorl's node fo rmation. Vertebral body hemangiomas seen within the body of T6, with the smaller peripheral hemangiom a within the right aspect of T10. Moderate scattered facet joint degenerative changes. No high-grade bony canal stenosis. Multilevel bony neural foraminal narrowing, up to moderate on the left at C6-7 and T9-10, and on the right at T3-4. No evidence of acute fracture or compression deformity. The prevertebral and paraspinous soft tissues are unremarkable. Evaluation of the included thoracic and upper abdominal structures reveals moderate cardiomegaly. Tra ce pericardial effusion. Crescentic opacity along the medial left lower hemithorax, difficult to eval uate given motion, but may reflect a loculated component of diffusion. Scattered bibasilar subsegment al atelectatic changes. Moderate to advanced atherosclerotic calcifications of the aorta. IMPRESSION: No acute osseous abnormality of the thoracic spine. Degenerative changes as above. Crescentic opacity along the medial left lower hemithorax,, may represent a loculated effusion compon ent. Moderate cardiomegaly.
[2022-05-25] MEDS ORDERED: KETOROLAC 30 MG/ML INJ ONE (12:24)
--- NOTE | 2022-05-25 12:26 | ER ---
Nurse's Notes [facility] Name: Jonathan Arreguin Age: 82 yrs Sex: Male : 1940 Arrival Date: 05/25/2022 Time: 11:09 Bed 10 Private MD: Omid Arreguin E Diagnosis: Sprain of ligaments of thoracic spine Presentation: 05/25 11:15 Chief complaint: Patient states: slipped and fell onto back in the shower approximately aa5 1 week ago. PT c/o mid-low back pain. 11:15 Coronavirus screen: At this time, the client does not indicate any symptoms associated aa5 with coronavirus-19. Ebola Screen: Patient denies travel to an Ebola-affected area in the 21 days before illness onset. Initial Sepsis Screen: Does the patient meet any 2 criteria? No. Patient's initial sepsis screen is negative. Does the patient have a suspected source of infection? No. Patient's initial sepsis screen is negative. Risk Assessment: Do you want to hurt yourself or someone else? Patient reports no desire to harm self or others. Onset of symptoms was May 2022. 11:15 Acuity: DECLAN 3 aa5 11:15 Method Of Arrival: Ambulatory aa5 Triage Assessment: 12:20 General: Appears in no apparent distress. uncomfortable, Behavior is calm, cooperative, eh3 appropriate for age. Musculoskeletal: Circulation, motion, and sensation intact. Range of motion: intact in all extremities. Historical: - Allergies: 12:10 No Known Allergies; aa5 - PMHx: 12:09 Depression; Gout; Hyperlipidemia; Hypertension; aa5 - Immunization history:: Adult Immunizations unknown. - Social history:: Smoking status: Patient denies any tobacco usage or history of. Screenin:20 [facility] ED Fall Risk Assessment (Adult) Score/Fall Risk Level 3 or more points = High eh3 Risk Oriented to surroundings, Maintained a safe environment, Educated pt \T\ family on fall prevention, incl call for assistance when getting out of bed, Assessed \T\ reinforced patient's understanding of fall precautions, Provided non-skid footwear, Hourly rounding (assess needs \T\ fall precautionary measures) done. Abuse screen: Denies threats or abuse. Denies injuries from another. Nutritional screening: No deficits noted. Tuberculosis screening: No symptoms or risk factors identified. Assessment: 12:20 General: Appears in no apparent distress. uncomfortable, Behavior is calm, cooperative, eh3 appropriate for age. Pain: Complains of pain in right mid back and left mid back and thoracic spine. Neuro: Level of Consciousness is awake, alert, obeys commands, Oriented to person, place, time, situation. Cardiovascular: Capillary refill < 3 seconds Patient's skin is warm and dry. Respiratory: Airway is patent Respiratory effort is even, unlabored, Respiratory pattern is regular, symmetrical. GI: No signs and/or symptoms were reported involving the gastrointestinal system. Abdomen is round non-distended. : No signs and/or symptoms were reported regarding the genitourinary system. EENT: No signs and/or symptoms were reported regarding the EENT system. Derm: No signs and/or symptoms reported regarding the dermatologic system. Skin is pink, warm \T\ dry. Musculoskeletal: Circulation, motion, and sensation intact. Range of motion: intact in all extremities. Vital Signs: 11:15 BP 139 / 63; Pulse 51; Resp 18 S; Temp 97.1(TE); Pulse Ox 98% on R/A; Weight 108.86 kg aa5 (R); Height 6 ft. 0 in. (R); 11:15 Body Mass Index 32.55 (108.86 kg, 182.88 cm) aa5 ED Course: 11:09 Patient arrived in ED. am2 11:09 Omid Arreguin MD is Private Physician. am2 11:10 Kristian Sharpe MD is Attending Physician. jr11 11:12 [facility] 11:15 Arm band placed on. aa5 11:38 CT Thoracic Spine Wo Cont In Process Unspecified. EDMS 12:11 Triage completed. aa5 12:17 Batool Cristobal, RN is Primary Nurse. eh3 12:20 Patient has correct armband on for positive identification. Bed in low position. Call eh3 light in reach. 12:20 No provider procedures requiring assistance completed. Patient did not have IV access eh3 during this emergency room visit. 12:25 Omid Arreguin MD is Referral Physician. 7 Administered Medications: 12:22 Drug: Ketorolac IM 30 mg Route: IM; Site: right deltoid; eh3 12:36 Follow up: Response: No adverse reaction eh3 Medication: 12:20 VIS not applicable for this client. eh3 Outcome: 12:26 Discharge ordered by . jh7 12:35 Patient left the ED. eh3 12:35 Discharged to home ambulatory. eh3 12:35 Condition: stable 12:35 Discharge instructions given to patient, Instructed on discharge instructions, follow up and referral plans. medication usage, Demonstrated understanding of instructions, follow-up care, medications, Prescriptions given X 2. Signatures: Dispatcher [employer] EDMarga Rosenberg, RN RN [email or web address] Joceline Swenson Jose, MD MD jr11 Batool Cristobal RN RN eh3 Pamela Abdul FNP AUTO TECH 7
--- NOTE | 2022-05-25 12:26 | EDPHYS ---
Physician Documentation [facility] Name: Jonathan Arreguin Age: 82 yrs Sex: Male : 1940 Arrival Date: 05/25/2022 Time: 11:09 Bed 10 Private MD: Omid Arreguin E ED Physician Kristian Sharpe HPI: 05/25 11:18 This 82 yrs old Male presents to ER via Unassigned with complaints of Back Pain. jh7 11:18 The patient presents with pain that is acute, and an injury, and tenderness. The jh7 symptoms are located in the left mid back and right mid back, thoracic spine. Onset: The symptoms/episode began/occurred 1 week(s) ago. The pain does not radiate. Associated signs and symptoms: Pertinent negatives: abdominal pain, chest pain, fever, incontinence, numbness, tingling, weakness. 82-year-old male reports that he slipped and fell in the shower 1 week ago injuring his thoracic spine. Reports he has been using a heating pad at home with minimal relief. He states that he went to an urgent care and had a negative x-ray, but his PCP advised that he get a CT. Reports pain and tenderness but denies loss of bowel or bladder, numbness/tingling of the extremities, syncope, or dizziness.. Historical: - Allergies: 12:10 No Known Allergies; aa5 - PMHx: 12:09 Depression; Gout; Hyperlipidemia; Hypertension; aa5 - Immunization history:: Adult Immunizations unknown. - Social history:: Smoking status: Patient denies any tobacco usage or history of. ROS: 11:18 Constitutional: Negative for fever, chills, and weight loss, Eyes: Negative for injury, jh7 pain, redness, and discharge, ENT: Negative for injury, pain, and discharge, Neck: Negative for injury, pain, and swelling, Cardiovascular: Negative for chest pain, palpitations, and edema, Respiratory: Negative for shortness of breath, cough, wheezing, and pleuritic chest pain, Abdomen/GI: Negative for abdominal pain, nausea, vomiting, diarrhea, and constipation, MS/Extremity: Negative for injury and deformity, Skin: Negative for injury, rash, and discoloration, Neuro: Negative for headache, weakness, numbness, tingling, and seizure. 11:18 Back: Positive for pain at rest, pain with movement, of the right mid back and left mid back. 11:18 All other systems are negative. Exam: 11:18 Constitutional: This is a well developed, well nourished patient who is awake, alert, jh7 and in no acute distress. Head/Face: Normocephalic, atraumatic. Eyes: Pupils equal round and reactive to light, extra-ocular motions intact. Lids and lashes normal. Conjunctiva and sclera are non-icteric and not injected. Cornea within normal limits. Periorbital areas with no swelling, redness, or edema. Neck: Trachea midline, no thyromegaly or masses palpated, and no cervical lymphadenopathy. Supple, full range of motion without nuchal rigidity, or vertebral point tenderness. No Meningismus. Cardiovascular: Regular rate and rhythm with a normal S1 and S2. No gallops, murmurs, or rubs. Normal PMI, no JVD. No pulse deficits. Respiratory: Lungs have equal breath sounds bilaterally, clear to auscultation and percussion. No rales, rhonchi or wheezes noted. No increased work of breathing, no retractions or nasal flaring. Abdomen/GI: Soft, non-tender, with normal bowel sounds. No distension or tympany. No guarding or rebound. No evidence of tenderness throughout. Skin: Warm, dry with normal turgor. Normal color with no rashes, no lesions, and no evidence of cellulitis. MS/ Extremity: Pulses equal, no cyanosis. Neurovascular intact. Full, normal range of motion. Neuro: Awake and alert, GCS 15, oriented to person, place, time, and situation. Cranial nerves II-XII grossly intact. Motor strength 5/5 in all extremities. Sensory grossly intact. Cerebellar exam normal. Normal gait. 11:18 Back: pain, that is moderate, of the left mid back and right mid back, ROM is painful, normal spinal alignment noted, CVA tenderness, is absent. Vital Signs: 11:15 BP 139 / 63; Pulse 51; Resp 18 S; Temp 97.1(TE); Pulse Ox 98% on R/A; Weight 108.86 kg aa5 (R); Height 6 ft. 0 in. (R); 11:15 Body Mass Index 32.55 (108.86 kg, 182.88 cm) aa5 MDM: 11:12 Patient medically screened. [facility] 12:35 Differential diagnosis: arthritis, Fracture Ligament Injury Osteoarthritis ruptured jh7 disc, spinal injury, vertebral fracture. Data reviewed: vital signs, nurses notes, radiologic studies, CT scan. I considered the following discharge prescriptions or medication management in the emergency department Medications were administered in the Emergency Department. See MAR. Care significantly affected by the following chronic conditions: Hypertension. Counseling: I had a detailed discussion with the patient and/or guardian regarding: the historical points, exam findings, and any diagnostic results supporting the discharge/admit diagnosis, the need for outpatient follow up, a orthopedic surgeon, if symptoms persist. Response to treatment: the patient's symptoms have mildly improved after treatment. ED course: The patient remained hemodynamically stable throughout the ER visit. Reviewed all chronic changes noted on the CT scan and provided the patient with a copy of the report. Advised him to continue using a heating pad and take medications as directed. If symptoms persist or any new concerning symptoms develop, follow-up is advised.. 05/25 11:22 Order name: CT Thoracic Spine Wo Cont; Complete Time: 12:18 [facility] Administered Medications: 12:22 Drug: Ketorolac IM 30 mg Route: IM; Site: right deltoid; eh3 12:36 Follow up: Response: No adverse reaction eh3 Disposition: 13:03 I reviewed the patient's care provided by the Advanced Practice Provider and agree with jr11 the diagnosis and treatment plan. Disposition Summary: 05/25/22 12:26 Discharge Ordered Location: Home [facility] Problem: new [facility] Symptoms: are unchanged [facility] Condition: Stable [facility] Diagnosis - Sprain of ligaments of thoracic spine [facility] Followup: [facility] - With: Omid Arreguin MD - When: 2 - 3 days - Reason: Recheck today's complaints Discharge Instructions: - Discharge Summary Sheet [facility] - Thoracic Strain [facility] Forms: - Medication Reconciliation Form 7 - Thank You Letter [facility] Prescriptions: - Zanaflex 4 mg Oral Tablet - take 1 tablet by ORAL route every 8 hours As needed; 20 tablet; Refills: 0, jh7 Product Selection Permitted - Medrol (Oskar) 4 mg Oral Tablets, Dose Pack - take 1 tablet by ORAL route as directed - follow package instructions; 1 jh packet; Refills: 0, Product Selection Permitted Signatures: Dispatcher [employer] Marga Reid, RN RN aa5 Kristian Sharpe MD MD jr11 Batool Cristobal RN RN eh3 Pamela Abdul, [employer] jh7
[2022-05-25 15:44] VITALS: BP 139/63; TEMP 97.1; O2SAT 98
== END 2022-05-25 12:35 | disposition home or self-care (01) ==
LOC: ER 11:06
DX: S23.3XXA Sprain of ligaments of thoracic spine, initial encounter (principal); W01.0XXA Fall on same level from slipping, tripping and stumbling without subsequent striking against object, initial encounter; Y93.E1 Activity, personal bathing and showering; Y92.012 Bathroom of single-family (private) house as the place of occurrence of the external cause; E78.5 Hyperlipidemia, unspecified; I10 Essential (primary) hypertension; F32.A Depression, unspecified; M10.9 Gout, unspecified
CPT/HCPCS: 72128